=== PATIENT | male | born 1965 | race African-American/Black ===

== ENCOUNTER 2016-09-12 18:44 | Emergency (ER) | payer OTHER ==
[~2016-09-12] VITALS: Ht 165.1 cm; Wt 69.4 kg
[~2016-09-12 18:44] MED LIST: APRESOLIN50 MG PO; APRESOLINE50 MG PO; ASPIR-LOW81 MG PO; ASPIRIN E.C.81 M1 PO; BP; CLONIDINE HCL0.2 MG PO; DAILY VALUE1 EACH PO; HYDROCHLOROTHIA25 MG PO; Hydrodiuril,Oretic,E PO; LORTAB 5-325 M1 EACH PO; LOSARTAN POTAS100 MG PO; MOTRIN600 MG PO; MOTRIN800 MG PO; NEURONTIN400 MG PO; NIFEDIPINE ER60 MG PO; NORVASC10 MG PO; PERCOCET 5/31 TABLET PO; PRINIVIL40 MG PO; PROCARDIA XL60 MG PO; Prinivil PO; Procardia XL,Adalat PO; SPIRONOLACTONE25 MG PO
[2016-09-12 22:16] VITALS: BP 181/99
== END 2016-09-12 22:41 | disposition home or self-care (01) ==
LOC: EME 18:44 → EDBD 18:44 → EME 18:44
DX: T40.5X1A Poisoning by cocaine, accidental (unintentional), initial encounter (principal); F14.10 Cocaine abuse, uncomplicated; I10 Essential (primary) hypertension; F17.200 Nicotine dependence, unspecified, uncomplicated; Z87.828 Personal history of other (healed) physical injury and trauma
CPT/HCPCS: 80053; 85025; 93005; 99281; 99285; G0480; J2310; J7030

== ENCOUNTER 2016-10-22 04:34 | Inpatient (IN) | payer OTHER ==
[~2016-10-22] VITALS: Ht 167.6 cm; Wt 70.5 kg
[2016-10-22 05:30] LABS: CHLORIDE 108 mEq/L (99-109); POTASSIUM 3.3 mEq/L (3.7-5.4); SODIUM 139 mEq/L (136-147)
[2016-10-22 05:32] LABS: GLUCOSE 106 mg/dL (70-99)
[2016-10-22 05:33] LABS: ANION GAP 9 MEQ/L (2-14)
[2016-10-22 05:36] LABS: GFR ESTIMATE (CALCULATED) 59 mL/min/
[2016-10-22 05:37] LABS: UREA NITROGEN (BUN) 27 mg/dL (9-23)
[2016-10-22 05:41] LABS: HEMATOCRIT 38.5 % (38.0-50.0); MCH 30.9 PG (29.0-34.0); MCHC 33.5 G/DL (30.0-36.0); MCV 92.1 FL (86-99); RBC DIS.WIDTH-CV 14.8 % (11.8-14.6); RED BLOOD COUNT 4.18 M/uL (4.00-5.50); WHITE BLOOD COUNT 11.6 K/uL (4.1-10.2)
[2016-10-22 05:43] LABS: TROP-I INTERPRETATION NEGATIVE; TROPONIN-I 0.06 ng/mL (0.0-0.30)
[2016-10-22 07:46] LABS: MEAN PLAT.VOLUME 12.7 uM^3 (9.0-12.4); PLAT.SUFFICIENCY ADEQUATE; PLATELET COUNT 170 K/uL (156-360)
[2016-10-22 08:50] LABS: ADD MIUA? YES; BILIRUBIN NEGATIVE; BLOOD NEGATIVE; COLOR YELLOW ((YELLOW)); GLUCOSE (STRIP) NEGATIVE; KETONES NEGATIVE; LEUKOCYTES TRACE; NITRITE NEGATIVE; PROTEIN (STRIP) 30; SPECIFIC GRAVITY 1.024 (1.000-1.030)
[2016-10-22 08:54] LABS: BACTERIA NONE SEEN /HPF; EPITHELIAL CELLS NONE SEEN /HPF; MUCUS NONE SEEN /LPF; RED BLOOD CELLS 0-5 /HPF (0-5); UCUL ADDED? NO
[2016-10-22 09:48] VITALS: BP 161/86
[2016-10-22 12:15] VITALS: BP 156/82
[2016-10-22 13:05] LABS: TROP-I INTERPRETATION INDETERMINATE; TROPONIN-I 0.46 ng/mL (0.0-0.30)
[2016-10-22 14:43] LABS: INTER. NORMALIZED RATIO 1.2; PROTHROMBIN TIME 12.3 (9.2-11.2); PTT 31.1 (25-32)
[2016-10-22 16:00] VITALS: BP 175/88
[2016-10-22] MEDS ORDERED: NEURONTIN300 MG PO (16:28)
[2016-10-22 17:27] VITALS: BP 162/98
[2016-10-22 18:18] LABS: TROP-I INTERPRETATION INDETERMINATE
[2016-10-22 19:28] VITALS: BP 180/100
[2016-10-23] VITALS (7 sets, daily range): BP systolic 116–164; BP diastolic 67–93
[2016-10-23 05:27] LABS: HEMATOCRIT 41.3 % (38.0-50.0); MCH 31.5 PG (29.0-34.0); MCHC 33.9 G/DL (30.0-36.0); MCV 92.8 FL (86-99); MEAN PLAT.VOLUME 13.9 uM^3 (9.0-12.4); PLATELET COUNT 186 K/uL (156-360); RBC DIS.WIDTH-CV 15.1 % (11.8-14.6); RBC DIS.WIDTH-SD 51.1 % (39-53); RED BLOOD COUNT 4.45 M/uL (4.00-5.50); WHITE BLOOD COUNT 11.2 K/uL (4.1-10.2)
[2016-10-23 05:53] LABS: ANION GAP 8 MEQ/L (2-14); CHLORIDE 108 MEQ/L (99-109); GFR ESTIMATE (CALCULATED) > 59 mL/min/; GLUCOSE 103 mg/dL (70-99); POTASSIUM 3.7 MEQ/L (3.7-5.4); SAMPLE HEMOLYSIS CHECK 0; SAMPLE ICTERIC CHECK 0; SAMPLE LIPEMIA CHECK 0; SODIUM 140 MEQ/L (136-147); UREA NITROGEN (BUN) 13 mg/dL (9-23)
[2016-10-23] MEDS ORDERED: LO-DOSE ASPIRIN81 M2 PO (11:14)
[2016-10-23] MEDS ORDERED: PERCOCET 10/1 TABLET PO (11:17)
[2016-10-23] MEDS ORDERED: ELAVIL10 MG PO (11:17)
[2016-10-24 03:49] VITALS: BP 133/86
[2016-10-24 08:09] VITALS: BP 165/90
[2016-10-24] MEDS ORDERED: CLONIDINE HCL0.2 MG PO (10:56)
[2016-10-24] MEDS ORDERED: HYDROCHLOROTH12.5 M3 PO (13:35)
== END 2016-10-24 15:11 | disposition home or self-care (01) | DRG 287 ==
LOC: EME → EDBD 04:34 → EME 04:34 → EDOF 07:13 → 5WEST 09:35 → 4EAST 13:35 → 5WEST 13:35 → 4EAST 16:53
PROVIDERS: Emergency Medicine; Nurse Practitioner Adult Health
DX: R07.9 Chest pain, unspecified (principal); N17.9 Acute kidney failure, unspecified; I10 Essential (primary) hypertension; B19.20 Unspecified viral hepatitis C without hepatic coma; E87.6 Hypokalemia; F17.210 Nicotine dependence, cigarettes, uncomplicated; K21.9 Gastro-esophageal reflux disease without esophagitis; Z79.82 Long term (current) use of aspirin; Z79.899 Other long term (current) drug therapy; Z91.19 Patient's noncompliance with other medical treatment and regimen; Z87.828 Personal history of other (healed) physical injury and trauma; R00.1 Bradycardia, unspecified; I25.10 Atherosclerotic heart disease of native coronary artery without angina pectoris
CPT/HCPCS: 71010; 80048; 81003; 84484; 85027; 85610; 85730; 93005; 99281; 99285; C1769; C1887; C9113; J1644; J2250; J2405; J3010; J7030; J7040